=== PATIENT | female | born 1985 | race Caucasian/White ===

== ENCOUNTER 2024-11-21 23:39 | Emergency (ER) | payer SELFPAY ==
[2024-11-22] MEDS: Ketorolac 30 MG/ML SDV IVPUSH ONE (00:16)
[2024-11-22] MEDS: Sodium Chloride 0.9% 1,000 ML IV ONE (00:16)
[2024-11-22] MEDS: Ondansetron 4 MG/2 ML SDV IVPUSH ONE (00:16)
[2024-11-22 00:32] LABS: BASOPHILS PERCENT AUTO 0.4 % (0.0-1.0); EOSINOPHILS PERCENT AUTO 1.3 % (1.0-3.0); HEMOGLOBIN 13.4 g/dL (12.0-16.0); LYMPHOCYTES PERCENT AUTO 29.5 % (20.5-50.1); MEAN CORPUSCULAR HEMOGLOBIN 31.3 pg (27.0-34.0); MEAN CORPUSCULAR HGB CONC 32.7 g/dL (33.0-35.0); MEAN CORPUSCULAR VOLUME 95.8 fL (80-100); NEUTROPHILS PERCENT AUTO 59.8 % (42.2-75.2); PLATELET COUNT,PLT 269 10^3/uL (150-450); RED BLOOD CELL COUNT 4.28 10^6/uL (4.2-5.4); WHITE BLOOD CELL COUNT,WBC 7.8 10^3/uL (5.0-10.0)
[2024-11-22 00:34] LABS: APPEARANCE,URINE CLEAR (CLEAR); BILIRUBIN,URINE NEGATIVE (NEGATIVE); COLOR,URINE YELLOW (YELLOW); GLUCOSE,URINE NEGATIVE (NEGATIVE); KETONES,URINE NEGATIVE (NEGATIVE); LEUKOCYTE ESTERASE,URINE NEGATIVE (NEGATIVE); NITRITE,URINE NEGATIVE (NEGATIVE); OCCULT BLOOD,URINE NEGATIVE (NEGATIVE); PROTEIN,URINE NEGATIVE (NEGATIVE); UROBILINOGEN,URINE 0.2 mg/dL (0.2-1.0)
[2024-11-22 00:39] LABS: AMPHETAMINES,URINE NEGATIVE (NEGATIVE); BARBITURATES,URINE NEGATIVE (NEGATIVE); BENZODIAZEPINE,URINE NEGATIVE (NEGATIVE); MDMA (ECSTASY), URINE NEGATIVE (NEGATIVE); METHADONE,URINE NEGATIVE (NEGATIVE); METHAMPHETAMINES,URINE POSITIVE (NEGATIVE); OPIATES,URINE NEGATIVE (NEGATIVE); OXYCODONE,URINE NEGATIVE (NEGATIVE); PHENCYCLIDINE,URINE NEGATIVE (NEGATIVE); TCA,URINE NEGATIVE (NEGATIVE)
[2024-11-22 00:50] LABS: ALBUMIN 3.8 g/dL (3.4-5.0); ANION GAP 13.7 mEq/L (7-13); BILIRUBIN TOTAL 0.2 mg/dL (0.2-1.0); BUN/CREATININE RATIO 15.5 (No establ ref range); CALCIUM 9.1 mg/dL (8.5-10.1); CREATININE 0.71 mg/dL (0.55-1.02); EST CRCL DRUG DOSING (CG) 89.74 mL/min; POTASSIUM,K 3.7 mmol/L (3.5-5.1); PROTEIN TOTAL,TP 7.7 g/dL (6.4-8.2)
[2024-11-22 00:56] LABS: LACTIC ACID 1.1 mmol/L (0.4-2.0)
== END 2024-11-22 02:45 | disposition home or self-care (01) ==
LOC: DL.ED 23:39
DX: R10.30 Lower abdominal pain, unspecified (principal)
CPT/HCPCS: 36415; 76856; 80053; 80305; 81003; 81025; 83605; 83690; 85025; 96361; 96374; 96375; 99284; J1885; J2405; J7030

== ENCOUNTER 2025-07-23 22:35 | Emergency (ER) | payer OTHER, MEDICAID ==
[2025-07-23] MEDS ORDERED: fentaNYL 100 MCG/2 ML SDV IV ONE ×2 (22:36→22:52)
[2025-07-23] MEDS ORDERED: Lactated Ringers 1,000 ML IV ONE (22:36)
[2025-07-23] MEDS ORDERED: Succinylcholine 200 MG/10 ML MDV IV ONE (22:43)
[2025-07-23] MEDS ORDERED: Etomidate 2 MG/ML 20 ML SDV IV ONE (22:43)
[2025-07-23] MEDS ORDERED: Midazolam 1 MG/ML 2 ML SDV IV ONE (22:48)
[2025-07-23] MEDS ORDERED: fentaNYL 250 MCG/5 ML SDV ONE (22:49)
[2025-07-23 23:44] LABS: BASOPHILS PERCENT AUTO 0.1 % (0.0-1.0); EOSINOPHILS PERCENT AUTO 0.4 % (1.0-3.0); INR 1.2 (0.9-1.2); LYMPHOCYTES PERCENT AUTO 21.9 % (20.5-50.1); MONOCYTES PERCENT AUTO 3.8 % (2-8); NEUTROPHILS PERCENT AUTO 73.8 % (42.2-75.2); PLATELET COUNT,PLT 201 10^3/uL (150-450); RED BLOOD CELL COUNT 2.99 10^6/uL (4.2-5.4); WHITE BLOOD CELL COUNT,WBC 11.2 10^3/uL (5.0-10.0)
[2025-07-23 23:54] LABS: ALANINE AMINOTRANSFERASE,ALT 302 U/L (14-59); ASPARTATE AMNIOTRANSFERASE,AST 424 U/L (15-37); BILIRUBIN TOTAL 0.1 mg/dL (0.2-1.0); BLOOD UREA NITROGEN,BUN 8 mg/dL (7-18); CARBON DIOXIDE,CO2 19 mmol/L (21-32); CHLORIDE,CL 108 mmol/L (98-107); CREATININE 0.73 mg/dL (0.55-1.02); ETHANOL BLOOD MEDICAL 76 mg/dL (0); GLUCOSE RANDOM 174 mg/dL (70-99); POTASSIUM,K 3.0 mmol/L (3.5-5.1); PROTEIN TOTAL,TP 4.8 g/dL (6.4-8.2); SODIUM,NA 142 mmol/L (136-145)
[2025-07-23 23:55] LABS: AMPHETAMINES,URINE POSITIVE (NEGATIVE); BARBITURATES,URINE NEGATIVE (NEGATIVE); MDMA (ECSTASY), URINE NEGATIVE (NEGATIVE); METHAMPHETAMINES,URINE POSITIVE (NEGATIVE); OPIATES,URINE NEGATIVE (NEGATIVE); OXYCODONE,URINE NEGATIVE (NEGATIVE); PHENCYCLIDINE,URINE NEGATIVE (NEGATIVE); TCA,URINE NEGATIVE (NEGATIVE)
[2025-07-23 23:56] LABS: A/G RATIO 1.00; ESTIMATED GFR 108 mL/min (>=60)
[2025-07-23 23:59] LABS: APPEARANCE,URINE SLIGHTLY CLOUDY (CLEAR); GLUCOSE,URINE NEGATIVE (NEGATIVE); OCCULT BLOOD,URINE LARGE (NEGATIVE)
[2025-07-24] LABS: SQUAMOUS EPITHELIAL CELLS,UR RARE /HPF (NOT SEEN)
== END 2025-07-23 23:55 ==
LOC: EDBD → DL.ED 22:35 → MERGE 22:35 → DL.ED 23:55
DX: R31.9 Hematuria, unspecified (principal); V89.2XXA Person injured in unspecified motor-vehicle accident, traffic, initial encounter
CPT/HCPCS: 31500; 36415; 36430; 51702; 71045; 72170; 73110-LT; 80053; 80305-QW; 80307; 81001; 83605; 84484; 85025; 85610; 86850; 86900; 86901; 86920; 86922; 96374; 96375; 96376; 99285; 99291-25; 99292; G0390; J0330; J2250; J3010; J3490; J7120; P9016

== ENCOUNTER 2025-08-19 13:19 | Emergency (ER) | payer MEDICAID ==
[2025-08-19] MEDS ORDERED: Sodium Chloride 0.9% 10 ML Syringe FLUSH PRN (13:45)
[2025-08-19 13:58] LABS: BASOPHILS PERCENT AUTO 0.3 % (0.0-1.0); EOSINOPHILS PERCENT AUTO 1.5 % (1.0-3.0); LYMPHOCYTES PERCENT AUTO 19.6 % (20.5-50.1); MONOCYTES PERCENT AUTO 9.7 % (2-8); NEUTROPHILS PERCENT AUTO 68.9 % (42.2-75.2); PLATELET COUNT,PLT 467 10^3/uL (150-450); RED BLOOD CELL COUNT 3.82 10^6/uL (4.2-5.4); WHITE BLOOD CELL COUNT,WBC 7.3 10^3/uL (5.0-10.0)
[2025-08-19] MEDS: Iopamidol 612 MG/ML 100 ML Bottle IVPUSH ONE (14:08)
[2025-08-19 14:14] LABS: INR 1.0 (0.9-1.2)
[2025-08-19 14:18] LABS: A/G RATIO 0.8; ALANINE AMINOTRANSFERASE,ALT 28 U/L (14-59); ASPARTATE AMNIOTRANSFERASE,AST 19 U/L (15-37); BILIRUBIN TOTAL 0.3 mg/dL (0.2-1.0); BLOOD UREA NITROGEN,BUN 9 mg/dL (7-18); CARBON DIOXIDE,CO2 27 mmol/L (21-32); CHLORIDE,CL 103 mmol/L (98-107); CREATININE 0.63 mg/dL (0.55-1.02); GLUCOSE RANDOM 95 mg/dL (70-99); POTASSIUM,K 3.8 mmol/L (3.5-5.1); PROTEIN TOTAL,TP 8.2 g/dL (6.4-8.2); SODIUM,NA 140 mmol/L (136-145)
[2025-08-19 14:19] LABS: ESTIMATED GFR 116 mL/min (>=60); ETHANOL BLOOD MEDICAL < 3 mg/dL (0)
[2025-08-19] MEDS: Acetaminophen/HYDROcodone 325-5 MG Tab PO ONE (14:19)
== END 2025-08-19 16:29 | disposition home or self-care (01) ==
LOC: DL.ED 13:19
DX: J90 Pleural effusion, not elsewhere classified (principal); F17.200 Nicotine dependence, unspecified, uncomplicated
CPT/HCPCS: 36415; 74177; 80053; 80307; 83605; 83690; 85025; 85610; 99284; A9270-GY; Q9967

== ENCOUNTER 2025-08-21 19:21 | Emergency (ER) | payer MEDICAID ==
[2025-08-21] MEDS: Dexamethasone 4 MG/ML SDV IM ONE (20:09)
== END 2025-08-21 20:30 | disposition home or self-care (01) ==
LOC: DL.ED 19:21
DX: M62.830 Muscle spasm of back (principal)
CPT/HCPCS: 96372; 99282; 99283; J1100

== ENCOUNTER 2025-09-05 16:19 | Emergency (ER) | payer MEDICAID | END 2025-09-05 16:53 | disposition home or self-care (01) | LOC: DL.ED 16:19 | DX: K11.7 Disturbances of salivary secretion (principal) | CPT/HCPCS: 99282; 99283 ==